=== PATIENT | female | born 1975 | race Two or more races ===

== ENCOUNTER 2022-03-12 17:52 | Emergency (ER) | payer MEDICAID, OTHER ==
[~2022-03-12] VITALS: Ht 154.9 cm; Wt 65.8 kg
[~2022-03-12 17:52] MED LIST: LEV500T PO
[2022-03-12 18:20] VITALS: BP 112/78
[2022-03-12] MEDS ORDERED: ACETAMINOPHEN 500 MG TAB PO ONE (18:30)
[2022-03-12 19:23] LABS: Urine Bacteria NONE SEEN /hpf (None Seen); Urine Blood Negative /uL (Negative); Urine Budding Yeast FEW /hpf (None Seen); Urine Specific Gravity 1.016 (1.001-1.035); Urine WBC 2 /hpf (0 - 5)
[2022-03-12] MEDS ORDERED: NITR-87 PO (19:37)
== END 2022-03-12 20:31 | disposition home or self-care (01) ==
LOC: ER 17:52
DX: M79.10 Myalgia, unspecified site (principal); N39.0 Urinary tract infection, site not specified; F17.210 Nicotine dependence, cigarettes, uncomplicated; Z79.2 Long term (current) use of antibiotics
CPT/HCPCS: 81001

== ENCOUNTER 2022-04-24 13:09 | Emergency (ER) | payer OTHER ==
[~2022-04-24] VITALS: Ht 152.4 cm; Wt 60.7 kg
[~2022-04-24 13:09] MED LIST changes: +NITR-87 PO
[2022-04-24 13:20] VITALS: BP 115/60
[2022-04-24] MEDS ORDERED: LIDOCAINE 1% HCL (LOCAL ANESTH.) INJ 20ML MDV ID ONE (15:30)
[2022-04-24] MEDS ORDERED: TETANUS-DIPTH-ACEL PERTUSSIS 0.5ML SYR Tdap IM ONE (15:30)
[2022-04-24] MEDS ORDERED: CEPH-509 PO (15:36)
[2022-04-24] MEDS ORDERED: ACET-1158 PO (15:36)
== END 2022-04-24 15:57 | disposition home or self-care (01) ==
LOC: ER 13:09
DX: S80.852A Superficial foreign body, left lower leg, initial encounter (principal); F17.210 Nicotine dependence, cigarettes, uncomplicated; W45.8XXA Other foreign body or object entering through skin, initial encounter; Y93.89 Activity, other specified; Y92.89 Other specified places as the place of occurrence of the external cause; Y99.8 Other external cause status
CPT/HCPCS: 90471; 90715; 99284; J2001; 10120